=== PATIENT | male | born 1975 | race Caucasian/White ===

== ENCOUNTER → 2017-04-26 | Outpatient (CLI) | payer BC ==
[~2017-04-26] MED LIST: BACTRIM DS 8001 TA1 PO; FLEXERIL5 MG PO; HYDROCODONE BIT1 T11 PO; MOTRIN800 MG PO; PAIN TP; SEPTRA DS 800 M1 TAB PO; VICODIN 500 MG-1 TAB PO; VICODIN ES 7501 TAB PO
[2017-04-26 12:46] LABS: HEMATOCRIT 46.1 % (42.0-52.0); HEMOGLOBIN 15.6 g/dl (14.0-18.0); MEAN CELL VOLUME 93.7 fl (80.0-94.0); MEAN CORPUSCULAR HGB 31.7 pg (27.0-31.0); MEAN CORPUSCULAR HGB CONC 33.8 g/dl (33.0-37.0); RED BLOOD COUNT 4.92 10*6/uL (4.50-5.90); RED CELL DISTRI WIDTH 13.7 % (0-14.5); WHITE BLOOD COUNT 7.9 10*3/uL (4.8-10.8)
[2017-04-26 13:08] LABS: ALBUMIN 3.9 gm/dl (3.1-4.5); ALKALINE PHOSPHATASE 81 U/L (45-117); BUN 17 mg/dl (7-24); CHLORIDE 102 mmol/L (98-107); CHOLESTEROL 154 mg/dL (<200); CREATININE 0.88 mg/dL (0.70-1.30); HDL CHOLESTEROL 43 mg/dl (40-60); LDL CHOLESTEROL 66 mg/dL (9-159); POTASSIUM 3.8 mmol/L (3.5-5.1); SGOT/AST 19 IU/L (3-35); SGPT/ALT 28 U/L (12-78); SODIUM 140 mmol/L (136-145); TOTAL PROTEIN 7.4 gm/dL (6.4-8.2); TRIGLYCERIDES 223 mg/dl (<150); VLDL CHOLESTEROL 45 mg/dL (6-40)
== END | disposition home or self-care (01) ==
LOC: LAB 12:03
PROVIDERS: Family Medicine
DX: E78.00 Pure hypercholesterolemia, unspecified (principal); R53.83 Other fatigue; R11.0 Nausea; E55.9 Vitamin D deficiency, unspecified; J11.1 Influenza due to unidentified influenza virus with other respiratory manifestations

== ENCOUNTER 2021-09-22 08:25 | Emergency (ER) | payer SELFPAY ==
[~2021-09-22] VITALS: Ht 170.1 cm; Wt 68.0 kg
[2021-09-22 09:37] LABS: BASO # 0.1 10*3/uL (0.0-0.1); BASO % 0.6 % (0.0-1.0); EOS # 0.2 10*3/uL (0.0-0.4); EOS % 2.3 % (1.0-4.0); HEMATOCRIT 40.1 % (42.0-52.0); LYMPH # 0.5 10*3/uL (1.3-4.4); LYMPH % 5.5 % (27.0-41.0); MEAN CELL VOLUME 87.7 fl (80.0-94.0); MEAN CORPUSCULAR HGB 30.6 pg (27.0-31.0); MEAN CORPUSCULAR HGB CONC 34.9 g/dl (33.0-37.0); MEAN PLATELET VOLUME 9.4 fl (9.6-12.3); MONO # 1.1 10*3/uL (0.1-1.0); MONO % 12.1 % (3.0-9.0); NEUT # 7.1 10*3/uL (2.3-7.9); NEUT % 79.2 % (47.0-73.0); PLATELET COUNT AUTOMATED 228 10*3/uL (130-400); RED BLOOD COUNT 4.57 10*6/uL (4.50-5.90); RED CELL DISTRI WIDTH 13.3 % (0-14.5)
[2021-09-22 09:51] LABS: BILIRUBIN Negative (Negative); BLOOD Negative (Negative); CLARITY Clear (Clear); COLOR Yellow (Yellow); GLUCOSE Negative (Negative); KETONE 1+ (Negative); LEUKO ESTERASE Trace (Negative); NITRITE Negative (Negative); SPECIFIC GRAVITY 1.025 (1.001-1.030)
[2021-09-22 09:53] LABS: ACT PARTIAL THROMBO TIME 29.7 SECONDS (20.0-32.1)
[2021-09-22 09:55] LABS: ALKALINE PHOSPHATASE 83 U/L (45-117); BUN 18 mg/dl (7-24); CHLORIDE 104 mmol/L (98-107); CREATININE 0.75 mg/dL (0.70-1.30); LIPASE 68 U/L (73-393); POTASSIUM 3.6 mmol/L (3.5-5.1); SGOT/AST 18 IU/L (3-35); SGPT/ALT 20 U/L (12-78); SODIUM 136 mmol/L (136-145); TOTAL PROTEIN 7.3 gm/dL (6.4-8.2)
[2021-09-22 09:58] LABS: URINE AMPHETAMINES > 1000 (1000ng/ml); URINE BARBITURATES < 200 (200ng/ml); URINE BENZODIAZEPINES < 200 (200ng/ml); URINE CANNABINOIDS (THC) > 50 (50ng/ml); URINE COCAINE < 300 (300ng/ml); URINE METHADONE < 300 (300ng/ml); URINE OPIATES < 300 (300ng/ml)
[2021-09-22 10:03] LABS: BACTERIA TRACE; MUCOUS 1+
[2021-09-22 10:05] LABS: URINE PHENCYCLIDINE < 25 (25ng/ml)
[2021-09-22] MEDS ORDERED: VIBRA-TAB100 MG PO (15:22)
== END 2021-09-22 15:31 | disposition home or self-care (01) ==
LOC: ED 08:25
PROVIDERS: Emergency Medicine
DX: N45.1 Epididymitis (principal); F15.10 Other stimulant abuse, uncomplicated